=== PATIENT | male | born 1970 | race Caucasian/White ===

== ENCOUNTER 2018-04-09 19:29 | Emergency (ER) | payer OTHER, SELFPAY ==
[2018-04-09 19:30] VITALS: BP 145/88; PULSE 86; RESP 16; TEMP 37.3; O2SAT 96; BMI 39.5
--- NOTE | 2018-04-09 20:27 | US_ITS ---
HISTORY: EPIGASTRIC PAIN X 4 DAYS AFTER EATING TECHNIQUE: Transabdominal ultrasound was performed with real-time and static bertrand-scale imaging. COMPARISON: CT abdomen pelvis 05/29/15. FINDINGS: # of images incl. paperwork: 134 Liver: Diffuse increased echogenicity of the liver. Mild hepatic enlargement, 18.6 cm. The bile ducts are within normal limits. There is no demonstrated mass lesion. Gallbladder: The gallbladder wall measures 2 mm. There is a negative sonographic Pennington's sign. There is no pericholecystic fluid. There are no gallstones. Several (about 8) small polyps are seen within the gallbladder, largest 5 mm in greatest dimension. Common Bile Duct: The common bile duct measures 4 mm. Pancreas: Mostly obscured by bowel gas. The visualized portion is unremarkable. There is no demonstrated pancreatic mass or cyst. Right Kidney: Normal size of the right kidney. The right kidney measures 12.9 x 5.5 x 6.1 cm. Normal renal cortex. There is no demonstrated renal mass or cyst. There is no right hydronephrosis. US/Gallbladder IMPRESSION: No acute findings. Prominent in number but small in size gallbladder polyps. Consider six-month follow-up gallbladder ultrasound to assess for stability. Hepatic steatosis. at 2140 Reported and signed by: Jaydon Abbasi MD Electronically Signed: Jaydon Abbasi, at 21:39 EST Tel , Service support ,
[2018-04-09] MEDS: 0.9% Normal Saline 1,000 ML 1000 ML IV (20:36)
[2018-04-09] MEDS: Mag Hydrox/Al Hydrox/Simeth 30 ML UDC PO (20:36)
[2018-04-09 20:48] LABS: Absolute Lymphocyte Count 1.51 X10^3/ul (0.83-4.51); Basophil# 0.03 X10^3/uL; Basophil% 0.5 % (0-1); Eosinophil# 0.03 X10^3/uL; Eosinophils% 0.5 % (0-5); Hematocrit 43.6 % (40-54); Hemoglobin 15.6 g/dl (13.0-16.5); Lymphocyte # 1.51 X10^3/ul (4.0); Lymphocyte % 24.2 % (19-41); Mean Corp Hgb Conc 35.8 g/gl (32-36); Mean Corpuscular Hgb 31.4 pg (27.0-32.0); Mean Corpuscular Volume 87.7 fL (80-94); Mean Platelet Vol. 9.4 fl (6.2-12.0); Monocyte# 0.64 X10^3/uL; Monocyte% 10.2 % (0-10); Neutrophil # 4.03 X10^3/uL (2.7-7.7); Neutrophil % 64.4 % (47-70); Platelet Count 219 K/mm3 (150-450); RBC Distribution Width CV 13.2 % (11.6-14.6); RBC Distribution Width SD 42.1 fl (35.1-43.9); Red Blood Count 4.97 M/mm3 (4.6-6.2); White Blood Count 6.3 K/mm3 (4.4-11.0)
[2018-04-09 20:49] LABS: Differential Indicated SCAN CRITERIA MET; POSITIVE COUNT NO; POSITIVE DIFFERENTIAL NO; POSITIVE MORPHOLOGY YES
--- NOTE | 2018-04-09 21:00 | RAD_ITS ---
HISTORY: upper abdomen/lower chest pain EXAM: XR Chest 1 View: COMPARISON: None FINDINGS: # of images incl. paperwork: 1 LINES/DEVICES: None. LUNGS: Radiographically clear. No consolidation, edema or effusion. No pneumothorax. MEDIASTINUM AND CARDIOVASCULAR STRUCTURES: Cardiac silhouette not enlarged. Central airways and mediastinal contour are unremarkable. BONES AND SOFT TISSUES: Unremarkable. RAD/Chest 1 View (Portable) IMPRESSION: No radiographic evidence of acute cardiopulmonary disease. at 2131 Reported and signed by: Jaydon Abbasi MD Electronically Signed: Jaydon Abbasi, at 21:30 EST Tel , Service support ,
[2018-04-09 21:15] LABS: AST(SGOT) 32 U/L (15-37); Alanine Aminotransfer ALT/SGPT 53 U/L (16-61); Albumin, Serum 3.6 g/dL (3.2-5.0); Alkaline Phosphatase 75 U/L (45-117); Anion Gap 10 (5-15); BUN 14 mg/dL (7-18); BUN/Creat Ratio 15.2 RATIO (10-20); Calcium,Total 8.9 mg/dL (8.5-10.1); Chloride 102 mmol/L (98-107); Creatinine, Serum 0.92 mg/dL (0.70-1.30); EST Glomerular Filtration Rate 93 mL/min (>60); Est Glom Filt Rate - Afr Amer 113 mL/min (>60); Globulin 3.6 g/dL (2.2-4.2); Glucose 131 mg/dL (74-106); Lipase 70 U/L (73-393); Protein, Total 7.2 g/dL (6.4-8.2); Sodium Level 143 mmol/L (136-145)
[2018-04-09 21:40] LABS: Atypical Lymphocyte 1+ %; Differential Comment SCANNED; Platelet Estimate ADEQUATE (ADEQ); Reactive Lymphocyte 1+
--- NOTE | 2018-04-09 21:59 | ED.DCSUM_ITS ---
- ER Visit Summary Date of Service: 04/09/18 Chief Complaint: Abdominal pain History of Present Illness: The patient is a [address] Anderson. He reports that he has upper abdominal pain began 3 days ago. Sick continuous sharp pain. Senna 10 worsening a 10 currently. States that it is worsened by eating or drinking anything. Is relieved by nothing. He states his been nauseated, but has not vomited. No diarrhea. Last bowel was today. No melena hematochezia. No dysuria frequency. Of note the patient was placed on Augmentin the day before this began. However, he states his thickness in the past without any problems. Review of systems patient claims subjective fever. He has a cough productive of white sputum without blood. He denies any history of spicy or fatty food intolerance. Physical Examination: Vitals: Stable. Afebrile. General: Well-nourished and well-developed. Head: Normocephalic atraumatic. Neck: Supple, no lymphadenopathy. No JVD. Nontender. Cardiovascular: Regular rate and rhythm. No murmurs. Respiratory: No respiratory distress. Clear to auscultation bilaterally. Abdominal: Soft, moderate epigastric and right upper quadrant tenderness to palpation nondistended, normal bowel sounds. No guarding, rebound, or peritoneal signs. Back: Nontender. Extremities: Nontender, no edema. Skin: Normal color, no rash. Neurologic: Alert and oriented ?3. Cranial nerves II through XII are intact. Normal strength and sensation. Psych: Normal affect. Test Results: CBC is more for monocytes 10. Chem-7 with potassium 3.0 glucose 131. LFTs normal. Lipase negative. Clinical Impression(s) from Imaging Studies Gallbladder Ultrasound 04/09/18 20:27 IMPRESSION: No acute findings. Prominent in number but small in size gallbladder polyps. Consider six-month follow-up gallbladder ultrasound to assess for stability. Hepatic steatosis. at 2140 Reported and signed by: Jaydon Abbasi MD Electronically Signed: Jaydon Abbasi, at 21:39 EST Tel , Service support , Chest X-Ray 04/09/18 21:00 IMPRESSION: No radiographic evidence of acute cardiopulmonary disease. at 2131 Reported and signed by: Jaydon Abbasi MD Electronically Signed: Jaydon Abbasi, at 21:30 EST Tel , Service support , Emergency Department Course and Treatment: Patient was given a GI cocktail with minimal relief. He was given a dose of Toradol IV and is resting comfortably. Treatment Plan: Patient is seen Dr. Love in the past. He was discussed with Dr. Love due to the gallbladder polyps. He will be discharged instructed to follow-up in the office for further evaluation and treatment. Clinically his pain does not seem to be biliary in nature. He points to the lower esophagus/GE junction as the area that he is having pain. He is instructed to take Zantac at home. He refused pain medications or nausea medications at home. Return to the emergency department for any worsening symptoms. Disposition: To home in improved and stable condition. Impression: 1. Abdominal pain, uncertain cause. 2. Biliary polyps. 3. Hypokalemia. This note was generated with [employer] Real-Time dictation software. It may contain incorrect words, spelling, and punctuation that were not noted in review of the chart prior to signing ED Disposition - Plan for ED Patient: Disposition: Home or Assisted Living Instructions: ED Abdominal Pain Unkn Cause Referrals: Randolph Molina MD [STAFF PHYSICIAN] - As soon as possible
[2018-04-09] MEDS: Ketorolac 30 MG/ML Syringe IV (23:13)
[2018-04-09 23:14] VITALS: BP 145/84; PULSE 75; RESP 16; O2SAT 95
== END 2018-04-09 23:18 | disposition home or self-care (01) ==
PROVIDERS: Emergency Provider Emergency Medicine; Family Provider Family Medicine; PCP Family Medicine
DX: R10.13 Epigastric pain (principal); R10.11 Right upper quadrant pain; K82.4 Cholesterolosis of gallbladder; E87.6 Hypokalemia; I10 Essential (primary) hypertension
CPT/HCPCS: 71045; 76705; 80053; 83690; 85025; 96361; 96374; 99283; J7030; A4216

== ENCOUNTER → 2021-01-29 10:53 | Outpatient (CLI) | payer OTHER, SELFPAY ==
--- NOTE | 2021-01-29 11:16 | STEWCON_ITS ---
Reason For Study: Chest Pain; WARNER Stress Results Protocol: Emiliano Protocol WITH DEFINITY Maximum Predicted HR: 169 bpm Target HR: 144 bpm % Maximum Predicted HR: 91 % DurationHeart Rate Stage (mm:ss) (bpm) BP Comment Baseline 58 148/90No Chest Pain; 4 ML Diluted Definity Emiliano Protocol Stage I 3:00 90 150/84No Chest Pain Emiliano Protocol Stage II 3:00 109 162/78No Chest Pain; Mild Dyspnea Emiliano Protocol Stage III 3:00 137 178/82No Chest Pain; Moderate Dyspnea Emiliano Protocol Stage IV 0:30 153 / No Chest Pain; Moderate Dyspnea Recovery 95 142/78No Chest Pain; No Dypnea; Hip Pain Stress Duration: 9:30 mm:ss Maximum Stress HR: 153 bpm METS: 11 Baseline Echocardiogram Findings Stress Echo Wall motion Data Resting WM Intermediate WM Stress WM Resting Wall Motion Wall Motion Stress All segments Normal. All segments Hyperkinetic. Ejection Fraction 55 %. Ejection Fraction 70 %. Stress Results Heart rate response: Appropriate Blood pressure response: Resting hypertension-normal response Arrhythmias: Rare PVC during exercise Functional capacity: Good Stopped secondary to: Hip pain. EKG Data Baseline ECG: Sinus rhythm. Peak exercise ECG: Somatic/motion artifact with no obvious ECG changes. Symptoms with Stress No complaint of chest discomfort during exercise or recovery. ECHO/Stress Test Echo W/Contrast Interpretation Summary Contrast injection performed Negative (adequate) stress echocardiogram Ordering Physician: Karl Anderson D.O. Referring Physician: Joey Burk Performed By: Julee Redd, PATRIA, RVT
== END ==
PROVIDERS: PCP Family Medicine; Referring Provider Family Medicine; Visit Provider Family Medicine
DX: R07.9 Chest pain, unspecified (principal); R06.00 Dyspnea, unspecified; I10 Essential (primary) hypertension
CPT/HCPCS: 93017; 93350; Q9957; A4216; C8928

== ENCOUNTER 2021-02-15 14:06 | Outpatient (CLI) | payer MEDICARE, SELFPAY | END 2021-02-15 23:59 | disposition short-term general hospital (02) | LOC: LABSPEC 14:08 | PROVIDERS: PCP Family Medicine; Visit Provider Family Medicine | DX: U07.1 COVID-19 (principal) | CPT/HCPCS: 87635; U0003; U0005 ==